=== PATIENT | female | born 1950 ===

== ENCOUNTER 2020-12-30 04:13 | Inpatient (IN) | payer MEDICARE, MEDICAID ==
[~2020-12-30] VITALS: Ht 162.6 cm; Wt 61.0 kg
[2020-12-30] MEDS ORDERED: HYDROmorphone 1 MG/ML, 1ML INJ IV ONE (04:30)
[2020-12-30] MEDS ORDERED: HYDROmorphone 2 MG/ML, 1ML ONE (04:36)
--- NOTE | 2020-12-30 04:45 | NUR ---
Pt arrived from [place] for R hip fx, pt A&O x4, speaking in full sentences, connected to all monitors, VSS. Positioned in bed for comfort, TM
[2020-12-30 04:51] LABS: BASOPHILS % (AUTO) 1 % (0-1); EOSINOPHILS % (AUTO) 2 % (1-7); LYMPHOCYTES % (AUTO) 14 % (22-44); MEAN CORPUSCULAR HEMOGLOBIN 32.6 pg (27.0-34.8); MEAN CORPUSCULAR HGB CONC 34.4 g/dL (32.4-35.8); MONOCYTES % (AUTO) 5 % (2-9); NEUTROPHILS % (AUTO) 79 % (42-75); PLATELET COUNT 170 x10^3/uL (130-400); RED BLOOD COUNT 4.54 x10^6/uL (3.82-5.3); RED CELL DISTRIBUTION WIDTH 13.2 % (9.6-15.2)
[2020-12-30] MEDS ORDERED: GUAIFENESIN/DM 200-20MG, 10ML UDC PO PRN (05:00)
[2020-12-30] MEDS ORDERED: TEMAZEPAM 15 MG CAPSULE PO PRN (05:00)
[2020-12-30] MEDS ORDERED: ENALAPRILAT 1.25 MG/ML, 2ML IVPush PRN (05:00)
[2020-12-30] MEDS ORDERED: OXYcodone IR 5MG TABLET PO PRN (05:00)
[2020-12-30] MEDS ORDERED: HYDROmorphone 2 MG/ML, 1ML IVPush PRN ×3 (05:00→16:30)
[2020-12-30] MEDS ORDERED: DOCUSATE 100 MG CAPSULE PO PRN (05:00)
[2020-12-30] MEDS ORDERED: ONDANSETRON 2MG/ML, 2ML IVPush PRN (05:00)
[2020-12-30 05:03] LABS: ALBUMIN 3.6 g/dL (3.4-5.0); ANION GAP 6 mmol/L (5-15); CALCIUM 9.1 mg/dL (8.5-10.1); CHLORIDE 111 mmol/L (98-107); CREATININE 0.58 mg/dL (0.55-1.02)
--- NOTE | 2020-12-30 05:40 | NUR ---
Report to Katie JESSICA
[2020-12-30 06:04] VITALS: BP 113/77
[2020-12-30] MEDS: SODIUM CHLORIDE 0.9% 1,000 ML IV SCH ×2 (06:16→23:44)
[2020-12-30] MEDS ORDERED: ASPI-963 PO (07:30)
[2020-12-30] MEDS ORDERED: DULA1.5P SC (07:30)
[2020-12-30] MEDS ORDERED: GABA300S PO (07:30)
[2020-12-30] MEDS ORDERED: ATOR40TA78 PO (12:16)
[2020-12-30] MEDS ORDERED: DULO30CA44 PO (12:20)
[2020-12-30] MEDS ORDERED: OMEP-110 PO (12:20)
[2020-12-30] MEDS ORDERED: METO-282 PO (12:20)
[2020-12-30 12:40] VITALS: BP 119/74
[2020-12-30] MEDS ORDERED: CHLORHEXIDINE 15 ML UDC PO ONE (13:30)
[2020-12-30] MEDS ORDERED: LACTATED RINGERS 1,000 ML IV SCH (14:00)
[2020-12-30] MEDS ORDERED: FENTANYL PF 100 MCG/2ML ONE ×2 (14:22→15:11)
[2020-12-30] MEDS ORDERED: ROCURONIUM 10MG/ML,5ML ONE (14:54)
[2020-12-30] MEDS ORDERED: DEXAMETHASONE 4 MG/ML, 1ML ONE (14:54)
[2020-12-30] MEDS ORDERED: GLYCOPYRROLATE 0.2MG/1ML, 5ML ONE (14:54)
[2020-12-30] MEDS ORDERED: CEFAZOLIN 1,000 MG ONE (14:54)
[2020-12-30] MEDS ORDERED: ONDANSETRON 2MG/ML, 2ML ONE (14:54)
[2020-12-30] MEDS ORDERED: NEOSTIGMINE 1 MG/ML, 10ML ONE (14:54)
[2020-12-30] MEDS ORDERED: SUCCINYLCHOLINE 20 MG/ML, 10ML ONE (14:54)
[2020-12-30] MEDS ORDERED: PROPOFOL 10 MG/ML, 20ML ONE (14:54)
[2020-12-30] MEDS ORDERED: ACETAMINOPHEN 325 MG TABLET PO PRN (15:00)
[2020-12-30] MEDS ORDERED: KETOROLAC 30 MG/1 ML IV PRN (15:00)
[2020-12-30] MEDS ORDERED: MEPERIDINE/PF 25MG/0.5ML IVPush PRN (15:00)
[2020-12-30] MEDS ORDERED: ALBUTEROL SULFATE 2.5 MG/3 ML NPPB PRN (15:00)
[2020-12-30] MEDS ORDERED: DIAZEPAM 5 MG/ML, 2ML IVPush PRN (15:00)
[2020-12-30] MEDS ORDERED: hydrALAzine 20 MG/ML, 1ML IV PRN (15:00)
[2020-12-30] MEDS ORDERED: OXYcodone 5 MG/5 ML ORAL.SOL UDC PO PRN (15:00)
[2020-12-30] MEDS ORDERED: PROMETHAZINE 25 MG/ML, 1ML IV PRN (15:00)
[2020-12-30] MEDS ORDERED: LABETALOL 5MG/ML, 20ML IV PRN (15:00)
[2020-12-30] MEDS: FENTANYL PF 100 MCG/2ML IV PRN ×2 (15:13→15:24)
[2020-12-30] MEDS ORDERED: KETOROLAC 30 MG/1 ML ONE (15:27)
[2020-12-30] MEDS ORDERED: OXYcodone 5 MG/5 ML ORAL.SOL UDC ONE (15:27)
[2020-12-30 16:19] VITALS: BP 117/73
[2020-12-30] MEDS ORDERED: HYDROcodone/APAP 7.5-325MG/15ML UDC PO PRN (16:30)
[2020-12-30] MEDS ORDERED: ONDANSETRON 2MG/ML, 2ML IV PRN (16:30)
[2020-12-30] MEDS: BACLOFEN 10 MG TABLET PO PRN (18:05)
[2020-12-30 19:41] VITALS: BP 101/68
[2020-12-30] MEDS: DOCUSATE 100 MG CAPSULE PO SCH (21:00)
[2020-12-30] MEDS: SODIUM CHLORIDE FLUSH 10ML SYR IVF SCH (21:12)
[2020-12-30] MEDS: CEFAZOLIN PMX 2GM/50ML 50 ML IVPB SCH (22:19)
[2020-12-30] MEDS: KETOROLAC 30 MG/1 ML IV SCH (23:44)
[2020-12-31 00:28] VITALS: BP 98/58
[2020-12-31 04:33] VITALS: BP 112/76
[2020-12-31 05:31] LABS: BASOPHILS % (AUTO) 0 % (0-1); EOSINOPHILS % (AUTO) 0 % (1-7); LYMPHOCYTES % (AUTO) 12 % (22-44); MEAN CORPUSCULAR HEMOGLOBIN 32.6 pg (27.0-34.8); MEAN CORPUSCULAR HGB CONC 34.4 g/dL (32.4-35.8); MEAN PLATELET VOLUME 10.1 fL (7.4-10.4); MONOCYTES % (AUTO) 7 % (2-9); NEUTROPHILS % (AUTO) 81 % (42-75); PLATELET COUNT 127 x10^3/uL (130-400); RED BLOOD COUNT 3.54 x10^6/uL (3.82-5.3); RED CELL DISTRIBUTION WIDTH 13.3 % (9.6-15.2)
[2020-12-31 05:36] LABS: CHLORIDE 112 mmol/L (98-107)
[2020-12-31 05:43] LABS: ANION GAP 7 mmol/L (5-15); CALCIUM 8.4 mg/dL (8.5-10.1); CREATININE 0.44 mg/dL (0.55-1.02)
[2020-12-31] MEDS: CEFAZOLIN PMX 2GM/50ML 50 ML IVPB SCH (05:54)
[2020-12-31] MEDS: ENOXAPARIN 40 MG/0.4 ML SQ SCH (05:57)
[2020-12-31 07:40] VITALS: BP 125/62
[2020-12-31] MEDS: KETOROLAC 30 MG/1 ML IV SCH ×2 (07:55→14:55)
[2020-12-31] MEDS: DOCUSATE 100 MG CAPSULE PO SCH ×2 (07:55→20:05)
[2020-12-31] MEDS: BACLOFEN 10 MG TABLET PO PRN (07:55)
[2020-12-31] MEDS: SODIUM CHLORIDE FLUSH 10ML SYR IVF SCH ×2 (07:55→20:11)
[2020-12-31] MEDS: OXYcodone/APAP 5/325MG TABLET PO PRN ×2 (09:40→19:27)
[2020-12-31] MEDS: SODIUM CHLORIDE 0.9% 1,000 ML IV SCH (12:50)
[2020-12-31 12:58] VITALS: BP 114/55
[2020-12-31 19:40] VITALS: BP 127/79
[2021-01-01] MEDS: SODIUM CHLORIDE 0.9% 1,000 ML IV SCH ×2 (00:59→14:17)
[2021-01-01 02:09] VITALS: BP 145/84
[2021-01-01 05:51] LABS: BASOPHILS % (AUTO) 1 % (0-1); EOSINOPHILS % (AUTO) 1 % (1-7); LYMPHOCYTES % (AUTO) 19 % (22-44); MEAN CORPUSCULAR HEMOGLOBIN 32.4 pg (27.0-34.8); MEAN CORPUSCULAR HGB CONC 34.6 g/dL (32.4-35.8); MEAN PLATELET VOLUME 10.3 fL (7.4-10.4); MONOCYTES % (AUTO) 7 % (2-9); NEUTROPHILS % (AUTO) 73 % (42-75); PLATELET COUNT 111 x10^3/uL (130-400); RED BLOOD COUNT 3.33 x10^6/uL (3.82-5.3); RED CELL DISTRIBUTION WIDTH 13.2 % (9.6-15.2)
[2021-01-01] MEDS: ENOXAPARIN 40 MG/0.4 ML SQ SCH (06:13)
[2021-01-01 07:19] VITALS: BP 160/80
[2021-01-01] MEDS: SODIUM CHLORIDE FLUSH 10ML SYR IVF SCH ×2 (09:00→21:00)
[2021-01-01] MEDS: DOCUSATE 100 MG CAPSULE PO SCH ×2 (09:03→21:00)
[2021-01-01] MEDS: POLYETHYLENE GLYCOL 17 GM PACKET PO SCH (09:30)
[2021-01-01] MEDS: OXYcodone/APAP 5/325MG TABLET PO PRN ×2 (12:35→17:08)
[2021-01-01] MEDS ORDERED: ONDANSETRON ODT 4 MG ONE (12:47)
[2021-01-01 13:10] VITALS: BP 161/79
[2021-01-01 19:34] VITALS: BP 106/64
[2021-01-02 01:28] VITALS: BP 104/65
[2021-01-02] MEDS: SODIUM CHLORIDE 0.9% 1,000 ML IV SCH (04:04)
[2021-01-02 05:22] LABS: BASOPHILS % (AUTO) 1 % (0-1); EOSINOPHILS % (AUTO) 3 % (1-7); LYMPHOCYTES % (AUTO) 23 % (22-44); MEAN CORPUSCULAR HEMOGLOBIN 32.1 pg (27.0-34.8); MEAN CORPUSCULAR HGB CONC 34.3 g/dL (32.4-35.8); MEAN PLATELET VOLUME 10.3 fL (7.4-10.4); MONOCYTES % (AUTO) 8 % (2-9); NEUTROPHILS % (AUTO) 65 % (42-75); PLATELET COUNT 133 x10^3/uL (130-400); RED CELL DISTRIBUTION WIDTH 13.1 % (9.6-15.2)
[2021-01-02] MEDS: ENOXAPARIN 40 MG/0.4 ML SQ SCH (06:02)
[2021-01-02] MEDS: OXYcodone/APAP 5/325MG TABLET PO PRN ×3 (06:02→14:16)
[2021-01-02 07:00] VITALS: BP 121/81
[2021-01-02] MEDS: DOCUSATE 100 MG CAPSULE PO SCH (08:27)
[2021-01-02] MEDS: POLYETHYLENE GLYCOL 17 GM PACKET PO SCH (08:27)
[2021-01-02] MEDS: SODIUM CHLORIDE FLUSH 10ML SYR IVF SCH ×2 (08:29→09:00)
[2021-01-02 13:20] VITALS: BP 110/71
[2021-01-02] MEDS ORDERED: OXYC1TAB14 PO (15:08)
[2021-01-02 15:17] VITALS: BP 120/71
== END 2021-01-02 16:05 | DRG 481 ==
LOC: ED 04:59 → EDIP 05:25 → 4NE 05:49
PROVIDERS: ADMIT Internal Medicine; ATTEND Hospitalist
PROC: 0QS606Z Reposition Right Upper Femur with Intramedullary Internal Fixation Device, Open Approach (ICD-10-PCS; principal; 2020-12-30 14:15)
DX: S72.001A Fracture of unspecified part of neck of right femur, initial encounter for closed fracture (principal); D62 Acute posthemorrhagic anemia; Z20.822 Contact with and (suspected) exposure to COVID-19; E11.9 Type 2 diabetes mellitus without complications; F17.210 Nicotine dependence, cigarettes, uncomplicated; I10 Essential (primary) hypertension; I25.10 Atherosclerotic heart disease of native coronary artery without angina pectoris; K59.00 Constipation, unspecified; S72.144A Nondisplaced intertrochanteric fracture of right femur, initial encounter for closed fracture; W01.0XXA Fall on same level from slipping, tripping and stumbling without subsequent striking against object, initial encounter; Y92.009 Unspecified place in unspecified non-institutional (private) residence as the place of occurrence of the external cause; Z95.5 Presence of coronary angioplasty implant and graft; Z79.899 Other long term (current) drug therapy; Z79.891 Long term (current) use of opiate analgesic; Z79.82 Long term (current) use of aspirin; Z95.818 Presence of other cardiac implants and grafts; Z82.49 Family history of ischemic heart disease and other diseases of the circulatory system; Z83.42 Family history of familial hypercholesterolemia
CPT/HCPCS: 36415; 76000; 80048; 82040; 82962; 85025; 87635; 93005; 96374; 96375; 99285; C1713; G0378; J0690; J1100; J1170; J1650; J1885; J2405; J2704; J2710; J3010; J0330; J7030; J7120